=== PATIENT | male | born 1955 | race Hispanic/Latino ===

== ENCOUNTER 2017-10-14 06:21 | Emergency (ER) | payer OTHER ==
[2017-10-14 06:27] VITALS: O2SAT 98
[2017-10-14] MEDS ORDERED: Sodium Chloride 0.9% 1,000 ML IV ONE (07:21)
[2017-10-14] MEDS ORDERED: Sodium Chloride 0.9% 1,000 ML ONE (07:28)
[2017-10-14 07:43] LABS: BASO % 0.5 % (0.0-2.0); EOS # 0.2 K/uL (0.0-0.7); EOS % 1.6 % (0.0-4.0); LYMPH # 1.9 K/uL (1.0-4.3); LYMPH % 19.1 % (20.0-40.0); MEAN CELL VOLUME 86.8 fL (80.0-94.0); MEAN CORPUSCULAR HEMOGLOBIN 29.4 pg (27.0-31.0); MEAN CORPUSCULAR HGB CONC 33.9 g/dL (33.0-37.0); MEAN PLATELET VOLUME 8.7 fL (7.2-11.7); MONO # 0.5 K/uL (0.0-0.8); MONO % 5.3 % (0.0-10.0); NEUT # 7.3 K/uL (1.8-7.0); NEUT % 73.5 % (50.0-75.0); RBC 4.77 Mil/uL (4.40-5.90); RED CELL DISTRIBUTION WIDTH 13.6 % (11.5-14.5); WHITE BLOOD COUNT 9.9 K/uL (4.8-10.8)
[2017-10-14 08:01] LABS: ALB/GLOB RATIO 1.3 (1.0-2.1); ALBUMIN 4.2 g/dL (3.5-5.0); ALT/SGPT 31 U/L (21-72); AST/SGOT 25 U/L (17-59); BLOOD UREA NITROGEN 16 mg/dL (9-20); CALCIUM 9.2 mg/dl (8.6-10.4); GFR AFRICAN-AMERICAN > 60; GFR NON-AFRICAN AMERICAN > 60; LIPASE 78 U/L (23-300)
[2017-10-14 08:12] LABS: B-TYPE NATRIURETIC PEPTIDE 145 pg/mL (0-900)
[2017-10-14 09:26] LABS: URINE BILIRUBIN NEGATIVE (NEGATIVE); URINE BLOOD NEGATIVE (NEGATIVE); URINE CLARITY Clear (Clear); URINE COLOR Straw (YELLOW); URINE GLUCOSE (UA) NORMAL (Normal); URINE LEUKOCYTE ESTERASE NEG Leu/uL (Negative); URINE PROTEIN NEGATIVE (NEGATIVE); URINE UROBILINOGEN NORMAL mg/dL (0.2-1.0)
[2017-10-14 09:41] VITALS: BP 162/83; PULSE 60; RESP 18; TEMP 98.3
--- NOTE | 2017-10-14 09:59 | C.PDOC ---
History Of Present Illness 62-year-old male, presents to the emergency department with complaints of generalized weakness. patient states he has been using PCP for the past five days. He denies IVDA, chest pain or shortness of breath. Pt is also complaining of non traumatic lower back pain. Denies any numbness, redness, swelling, bladder/bowel incontinence, or any other associated symptoms. No other complaints at this time. Time Seen by Provider: 10/14/17 07:14 Chief Complaint (Nursing): Weakness/Neurological Deficit History Per: Patient History/Exam Limitations: no limitations Current Symptoms Are (Timing): Still Present Past Medical History Reviewed: Historical Data, Nursing Documentation, Vital Signs Vital Signs: Last Vital Signs Temp 98.3 F 10/14/17 09:40 Pulse 60 10/14/17 09:40 Resp 18 10/14/17 09:40 BP 162/83 H 10/14/17 09:40 Pulse Ox 98 10/14/17 10:02 - Medical History PMH: Anxiety, Depression Denies: Chronic Kidney Disease Family History: States: No Known Family Hx - Social History Hx Alcohol Use: Yes Hx Substance Use: Yes (HEROIN, CANNABIS) Review Of Systems Constitutional: Positive for: Weakness. Negative for: Fever, Malaise Cardiovascular: Negative for: Chest Pain, Palpitations Respiratory: Negative for: Cough, Shortness of Breath Gastrointestinal: Negative for: Nausea, Vomiting, Abdominal Pain Musculoskeletal: Positive for: Back Pain Skin: Negative for: Rash Neurological: Negative for: Weakness, Numbness, Headache, Dizziness Physical Exam - Physical Exam Appears: Non-toxic, No Acute Distress Skin: Normal Color, Warm, Dry, No Rash Head: Atraumatic, Normacephalic Eye(s): bilateral: Normal Inspection, PERRL, EOMI Nose: Normal Oral Mucosa: Moist Lips: Normal Appearing Neck: Normal ROM Cardiovascular: Rhythm Regular, No Murmur Respiratory: Normal Breath Sounds, No Accessory Muscle Use Gastrointestinal/Abdominal: Soft, No Tenderness Back: Paraspinal Tenderness (lumbar), No Straight Leg Raising Extremity: Normal ROM, No Deformity, No Swelling Neurological/Psych: Oriented x3, Normal Speech ED Course And Treatment - Laboratory Results Result Diagrams: 10/14/17 07:38 10/14/17 07:38 ECG: Interpreted By Me, Viewed By Me ECG Rhythm: Sinus Bradycardia ECG Interpretation: No Acute Changes Rate From EC O2 Sat by Pulse Oximetry: 98 (RA) Pulse Ox Interpretation: Normal Medical Decision Making Medical Decision Making: generalized weakness patient remained stable during observation cxr - prelim reading nad lumbar spine - arthritic changes labs reviewed will discharge home to follow up with pmd in 2 days Disposition Counseled Patient/Family Regarding: Studies Performed, Diagnosis, Need For Followup - Disposition Referrals: [facility] [Outside] Disposition: HOME/ ROUTINE Disposition Time: 10:00 Condition: STABLE Additional Instructions: follow up with [facility] days call to make an appointment return to ER if symptoms worsens or progress your xrays demonstrates no acute pathology and will be read officially by radiologist lab work was reviewed stop using pcp Instructions: Fatigue (DC), Drug Abuse Treatment, Weakness (ED) Forms: [facility] (Danish), General Discharge Instructions - Clinical Impression Clinical Impression: Weakness, PCP (phencyclidine) abuse - Scribe Statement The provider has reviewed the documentation as recorded by the Scribe (Kesha Bone) All medical record entries made by the Scribe were at my direction and personally dictated by me. I have reviewed the chart and agree that the record accurately reflects my personal performance of the history, physical exam, medical decision making, and the department course for this patient. I have also personally directed, reviewed, and agree with the discharge instructions and disposition.
--- NOTE | 2017-10-14 10:29 | RAD ---
PROCEDURE: Radiographs of the Lumbar Spine. HISTORY: low back pain COMPARISON: No prior. FINDINGS: BONES: Normal alignment. No listhesis. No fracture. Prominent anterior and marginal osteophytosis DISC SPACES: Narrowed L4-5 L5-S1 and lesser degrees elsewhere OTHER FINDINGS: Set hypertrophic arthrosis L4-5 and L5-S1 levels. AP spinal canal appear shallow L5 probably L4 levels IMPRESSION: Extensive thoraco lumbar spondylosis. Advanced inferior degenerative disc disease. Other findings -as above.
== END 2017-10-14 10:23 | disposition home or self-care (01) ==
LOC: C.ER 06:21
DX: F16.10 Hallucinogen abuse, uncomplicated (principal); R53.1 Weakness
CPT/HCPCS: 71046; 72100; 80053; 81001; 82550; 82948; 83690; 83880; 84443; 84484; 85025; 96360; 99285; J7030